=== PATIENT | female | born 1925 | race Caucasian/White ===

== ENCOUNTER 2016-08-28 10:46 | Emergency (ER) | payer MEDICARE ==
[2016-08-28 11:07] LABS: BASOPHILS 0.7 % (0.0-2.0); EOSINOPHILS 6.5 % (0.0-6.0); EOSINOPHILS# 0.3 X 10^3uL (0.0-0.4); LYMPHOCYTES 26.6 % (20.0-40.0); LYMPHOCYTES# 1.3 X 10^3uL (0.8-3.8); MEAN CELL VOLUME 94.2 fL (84.0-102.0); MEAN CORPUS. HGB CONCENTRATION 33.4 g/dL (32.0-36.0); MEAN CORPUSCULAR HEMOGLOBIN 31.5 pg (29.0-35.0); MONOCYTES 10.9 % (2.0-10.0); MONOCYTES# 0.5 X 10^3uL (0.2-1.0); NEUTROPHILS 55.3 % (54.0-75.0); NEUTROPHILS# 2.9 X 10^3uL (2.6-6.7); PLATELET COUNT 237 X 10^3uL (130-440); RED BLOOD COUNT 4.78 X 10^6uL (4.20-6.10); RED CELL DISTRIBUTION WIDTH 12.7 % (11.5-14.5)
--- NOTE | 2016-08-28 11:33 | RADIOLOGY REPORT ---
EXAM:CHEST; SINGLE VIEW 22168 INDICATION: Indigestion and abdominal pain. COMPARISON:09/06/2015 TECHNIQUE:An AP portable radiograph was obtained. FINDINGS: The heart remains moderately enlarged and the aorta remains mildly tortuous. Diffuse airway s thickening is unchanged. Lungs are underexpanded. Areas of scarring in both lung bases are stable. No new opacities have developed. The chest wall appears intact and there is no pneumothorax. Imaged p ortions of the upper abdomen appear to show a large amount of fecal matter, but no definite dilated b owel loops. There is no free air. IMPRESSION: 1. Pulmonary underexpansion, with stable chronic airways disease and bibasal scarring. No acute pulmo nary disease. 2. Unchanged cardiomegaly. 3. Visualized bowel shows constipation. No free air. Final Electronic Signature: This report was electronically signed by Zhang Mcgill MD on 08/28/2016 11:30 AM. schuyler /
[2016-08-28 11:45] LABS: BLOOD UREA NITROGEN 16 mg/dL (7-17); CHLORIDE 101 mmol/L (98-107); GLUCOSE 88 mg/dL (70-100); POTASSIUM 4.4 mmol/L (3.5-5.1); SODIUM 136 mmol/L (137-145); TROPONIN I < 0.012 ng/mL (0.00-0.034)
[2016-08-28 11:46] LABS: CALCIUM 9.6 mg/dL (8.4-10.2); CREATININE 0.9 mg/dL (0.5-1.0); MAGNESIUM 1.9 mg/dL (1.6-2.3)
[2016-08-28] MEDS ORDERED: FAMOTIDINE IN SALINE, ISO-OSM 50 ML IV ONE (12:30)
--- NOTE | 2016-08-28 14:00 | ER PHYSICIAN DOCUMENTATION ---
Physician Documentation [facility] Name:Jessica Hamilton Age:89 yrs Sex:Female :[id number] Arrival Date:08/28/2016 Time:10:46 BedTrauma C Private MD:Marian Tripp ED, John Disposition: 08/28/16 13:47 Discharged to Home/Self Care. Impression: Atypical Chest Pain. - Condition is Good. - Discharge Instructions: CHEST PAIN Atypical - CHEST PAIN, Uncertain Cause. - Prescriptions for omeprazole 20 mg Oral capsule,delayed release(DR/EC) - take 1 capsule by ORAL route once daily; 30 capsule. - Medical Reconciliation form form. - Follow up: Galen Gambino MD; When: 4- 6 days; Reason: Continuance of care. - Problem is new. - Symptoms have improved. HPI: 08/28 13:43 This 89 yrs old Female presents to ER via Private Vehicle with complaints of jm Chest Pain. 13:43 The patient or guardian reports chest pain that is located primarily in the epigastric jm area. Onset: just prior to arrival. The pain does not radiate. There has been no movement of pain. Associated signs and symptoms: Pertinent positives: indigestion and burping. . The chest pain is described as causing indigestion, a pressure. Duration: The patient or guardian reports multiple episodes, that are intermittent, that wax and wane, the episodes last approximately 1 minute(s). Modifying factors: The symptoms are alleviated by burping. the symptoms are aggravated by nothing. Severity of pain: in the emergency department the pain has resolved and did so just prior to arrival. Risk factors for coronary artery disease include: This patient has a history of hypertension. The patient has not experienced similar symptoms in the past. Pt w hx of hiatal hernia and wonders if her pain is form that, since it got better after burping. . Historical: - Allergies: Codeine; Isosorbide Mononitrate; Lexapro; PENICILLINS; Simvastatin; Stadol; - Home Meds: 1. Amitriptyline Oral 2. benzonatate oral 3. Diltiazem Oral 4. gabapentin oral 5. Tramadol Oral 6. Triamcinolone Acetonide Topical 7. Warfarin Oral 8. Furosemide Oral - PMHx: ATRIAL FIB; bradycardia; HYPERTENSION; Hyperlipidemia; DEPRESSION; ANXIETY; Syncope; CHF; - PSHx: APPENDECTOMY; CHOLECYSECTOMY; - Ebola Screening: : Patient denies exposure to infectious person. Patient denies travel to an Ebola-affected area in the 21 days before illness onset. . ROS: 11:00 Constitutional: Negative for fatigue, fever. jm 11:00 ENT: Negative for rhinorrhea, sinus congestion, sinus pain, sore throat. 11:00 Cardiovascular: Positive for chest pain. 11:00 Respiratory: Negative for cough, shortness of breath. 11:00 Abdomen/GI: Positive for abdominal pain, of the epigastric area, Negative for nausea, vomiting, diarrhea, constipation. 11:00 Back: Negative for radiated pain. 11:00 MS/extremity: Negative for swelling, tenderness. 11:00 Skin: Negative for swelling. 11:00 Neuro: Negative for dizziness, weakness. 11:00 All other systems are negative. Exam: 11:00 Constitutional: The patient appears alert, awake, comfortable. 11:00 ENT: Mouth: is normal, Voice: is normal. 11:00 Chest/axilla: Inspection: normal, Palpation: tenderness, that is mild, of the xyphoid area. 11:00 Cardiovascular: Rate: normal, Rhythm: regular, Pulses: no pulse deficits are appreciated. 11:00 Respiratory: Respirations: normal, Breath sounds: are normal. 11:00 Abdomen/GI: Bowel sounds: normal, Palpation: mild abdominal tenderness, in the epigastric area. 11:00 Back: CVA tenderness, is absent, vertebral tenderness, is not appreciated. 11:00 Musculoskeletal/extremity: DVT Exam: No signs of deep vein thrombosis. Calves: are non-tender, have equal circumference. 11:00 Skin: Appearance: Color: pink, injury, is not appreciated. 11:00 Psych: Behavior/mood is pleasant, cooperative, Affect is calm. Vital Signs: 11:07 BP 139 / 81; Pulse 106; Resp 19; Pulse Ox 90% on R/A; Pain 0/10; st 11:10 Temp 97.8; st 11:10 BP 121 / 90; Pulse 90; Pulse Ox 93% ; st 11:40 BP 134 / 59; Pulse 76; Resp 18; Pulse Ox 92% ; st 12:00 BP 132 / 68; Pulse 68; Resp 14; Pulse Ox 96% ; st 12:30 BP 138 / 66; Pulse 74; Resp 13; Pulse Ox 97% ; st 13:00 BP 134 / 66; Pulse 75; Pulse Ox 96% ; st 13:30 BP 140 / 59; Pulse 71; Pulse Ox 96% ; st MDM: 10:49 Patient medically screened. 11:00 Differential diagnosis: acute myocardial infarction, anxiety, chest wall pain, jm esophagitis, gastritis, gastroesophageal reflux disease (GERD). Patient took aspirin. Data reviewed: vital signs, nurses notes, old medical records, lab test result(s), EKG, radiologic studies, and as a result, I will discharge patient. Test interpretation: by ED physician or midlevel provider: plain radiologic studies, ECG. Counseling: I had a detailed discussion with the patient and/or guardian regarding: the historical points, exam findings, and any diagnostic results supporting the discharge/admit diagnosis, lab results, radiology results, the need for outpatient follow up, a gin clerk. ECG:. ED course: Sx seem to align w GI related pain, but given risk factors, pt was ruled out w serial trops and will get scheduled stress test for 2pm on . . 08/28 11:40 Order name: PROTIME/INR; Complete Time: 12:09 [facility] 08/28 11:46 Order name: BASIC METABOLIC PANEL; Complete Time: 12: [facility] 08/28 11:46 Order name: MAGNESIUM; Complete Time: 12: [facility] 08/28 11:46 Order name: TROPONIN I; Complete Time: 12:09 [facility] 08/28 11:59 Order name: CBC AUTO DIF, MDIF/RMOR IF IND; Complete Time: 12:09 [facility] 08/28 13:45 Order name: TROPONIN I; Complete Time: 13:46 [facility] 08/28 11:34 Order name: CHEST; SINGLE VIEW 13717; Complete Time: 11:49 [facility] 08/28 10:58 Order name: 12-lead EKG; Complete Time: 11: 08/28 10:58 Order name: Iv Saline Lock; Complete Time: 11: 08/28 10:58 Order name: Place Patient On Monitor; Complete Time: 11:03 08/28 10:58 Order name: Pulse Ox Continuous; Complete Time: 11: 08/28 11:03 Order name: Oxygen; Complete Time: 11:03 st EC:00 Rhythm is irregularly irregular. QRS [place] is Normal. NM interval is normal. QT interval jm is normal. No Q waves. T waves are Normal. No ST changes noted. Dispensed Medications: 11:11 Drug: Aspirin Chewable Tablet 243 mg; {Note: 3 baby asprin given because she took one st this AM..} Route: PO; 13:59 Follow up: Response: No adverse reaction st 12:22 Drug: Pepcid 20 mg; Route: IVPB; Site: left antecubital; st 12:44 Follow up: IV Status: Completed infusion; IV Intake: 100ml st Signatures: Gertrude Sánchez RN RN Koby Diaz MD MD jm
--- NOTE | 2016-08-28 14:00 | ER NURSING DOCUMENTATION ---
Nurse's Notes [facility] Name:Jessica Hamilton Age:89 yrs Sex:Female :1925 Arrival Date:08/28/2016 Time:10:46 BedTrauma C Private MD:Marian Tripp Diagnosis:Atypical Chest Pain Presentation: 08/28 10:48 Acuity: SARA 2 st 10:54 Presenting complaint: Patient states: pt had a few min of chest pain into her left st chest and upper abd. pt is feeing better now. This happened about 30 min ago. pt denies any SOB or nausea with this. Transition of care: patient was not received from another setting of care. AIR CAT ACTIVATION no. 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 10:54 Method Of Arrival: Private Vehicle st Triage Assessment: 10:48 General: Appears in no apparent distress, Behavior is cooperative. Pain: Denies pain. st Cardiovascular: Capillary refill < 3 seconds Heart tones present Rhythm is atrial fibrillation Chest pain pt had a few min of left sided chest pain. . Respiratory: No deficits noted. GI: No deficits noted. Historical: - Allergies: Codeine; Isosorbide Mononitrate; Lexapro; PENICILLINS; Simvastatin; Stadol; - Home Meds: 1. Amitriptyline Oral 2. benzonatate oral 3. Diltiazem Oral 4. gabapentin oral 5. Tramadol Oral 6. Triamcinolone Acetonide Topical 7. Warfarin Oral 8. Furosemide Oral - PMHx: ATRIAL FIB; bradycardia; HYPERTENSION; Hyperlipidemia; DEPRESSION; ANXIETY; Syncope; CHF; - PSHx: APPENDECTOMY; CHOLECYSECTOMY; - Ebola Screening: : Patient denies exposure to infectious person. Patient denies travel to an Ebola-affected area in the 21 days before illness onset. . Screenin:07 Infectious Disease Risk None. Abuse screen: Denies threats or abuse. Denies injuries st from another. Nutritional screening: No deficits noted. Assessment: 11:31 General: pt resting quietly. She has no complaints at this time. . st 13:06 General: pt resting quietly and remains symptom free. . st Vital Signs: 11:07 BP 139 / 81; Pulse 106; Resp 19; Pulse Ox 90% on R/A; Pain 0/10; st 11:10 Temp 97.8; st 11:10 BP 121 / 90; Pulse 90; Pulse Ox 93% ; st 11:40 BP 134 / 59; Pulse 76; Resp 18; Pulse Ox 92% ; st 12:00 BP 132 / 68; Pulse 68; Resp 14; Pulse Ox 96% ; st 12:30 BP 138 / 66; Pulse 74; Resp 13; Pulse Ox 97% ; st 13:00 BP 134 / 66; Pulse 75; Pulse Ox 96% ; st 13:30 BP 140 / 59; Pulse 71; Pulse Ox 96% ; st ED Course: 10:47 Patient arrived in ED. ama 10:47 Marian Tripp MD is Private Physician. ama 10:48 Gertrude Sánchez RN is Primary Nurse. st 10:[address] 10:49 Koby Casas MD is Attending Physician. glendy 11:01 Inserted peripheral IV: 20 gauge in left antecubital area and blood collected. st 11:07 Port Xray Completed. macarena 11:07 Valuables Remains with patient Patient has correct armband on for positive st identification. Placed in gown. Bed in low position. Call light in reach. Side rails up X2. satellite project site monitor on. Pulse ox on. NIBP on. Warm blanket given. 11:08 Oxygen Oxygen administration via nasal cannula @ 2L/min. st 12:[address] 13:47 Galen Gambino MD is Referral Physician. glendy Administered Medications: 11:11 Drug: Aspirin Chewable Tablet 243 mg; {Note: 3 baby asprin given because she took one st this AM..} Route: PO; 13:59 Follow up: Response: No adverse reaction st 12:22 Drug: Pepcid 20 mg; Route: IVPB; Site: left antecubital; st 12:44 Follow up: IV Status: Completed infusion; IV Intake: 100ml st Intake: 12:44 IV: 100ml; Total: 100ml. st Outcome: 13:47 Discharge ordered by . glendy 13:58 Discharged to home ambulatory. st 13:58 Condition: improved 13:58 Discharge instructions given to patient, family, Instructed on discharge instructions, follow up and referral plans. medication usage, Prescriptions given X 1. 13:58 IV D/Giovanni 13:59 Patient [address] ED. st Signatures: Gertrude Sánchez RN RN Koby Diaz MD MD jm Abbott, Laura lea Averdick, Srinath, Reg Reg ama
== END 2016-08-28 13:59 | disposition home or self-care (01) ==
LOC: ER 10:46
DX: R07.89 Other chest pain (principal); R10.13 Epigastric pain; R14.2 Eructation; K30 Functional dyspepsia; I48.91 Unspecified atrial fibrillation; I10 Essential (primary) hypertension; Z79.899 Other long term (current) drug therapy; Z79.01 Long term (current) use of anticoagulants
CPT/HCPCS: 36415; 71010; 80048; 83735; 84484; 85025; 85610; 93005; 93010; 96365; 99285